=== PATIENT | female | born 1985 ===

== ENCOUNTER 2021-09-08 06:00 | Day surgery (SDC) | payer OTHER ==
[~2021-09-08] VITALS: Ht 152.4 cm; Wt 65.8 kg
== END 2021-09-08 21:30 | disposition home or self-care (01) ==
LOC: CIR.AMB 06:00 → SURH 09:15 → EDSTATUS 09:15 → SURH 10:07 → O/R 10:07 → CIR.AMB 21:30 → SURH 22:30
PROVIDERS: ATTEND Obstetrics & Gynecology Gynecologic Oncology
DX: C53.0 Malignant neoplasm of endocervix (principal); R59.0 Localized enlarged lymph nodes; Z88.8 Allergy status to other drugs, medicaments and biological substances; I34.1 Nonrheumatic mitral (valve) prolapse; Z20.822 Contact with and (suspected) exposure to COVID-19